=== PATIENT | female | born 1980 | race African-American/Black ===

== ENCOUNTER 2017-03-29 07:32 | Emergency (ER) | payer MEDICAID, OTHER ==
[~2017-03-29] VITALS: Ht 170.2 cm; Wt 63.5 kg
[2017-03-29 07:52] VITALS: BP 127/74
--- NOTE | 2017-03-29 08:08 | Emergency Room Report ---
History of Present Illness General Chief Complaint: Animal Bite Source: Patient Present Illness HPI Patient states that she notes some insect bites on her right arm and the back of her right shoulder. She states that she was at a friend's house he was breathing her he her for some time. She did sit on her bed. However while she was there her friend asked her if she was "itching." She also was at a [place] this last weekend. She did sleep over at her friend's house. She did not see any mosquitoes or spiders. The location is only on her right upper arm and back of her right shoulder. She states the lesions itch a condom. She has been applying hydrocortisone to them. She states she has felt a little nauseated. She denies fever or chills. She has no other complaints. Allergies: Coded Allergies: No Known Allergies (Unverified , 12/05/12) Patient History Past Medical History: none Past Surgical History: none Social History: Denies: alcohol use, drug use, smoking Last Menstrual Period: unk Now: No Reviewed Nursing Documentation: PMH: Agreed, PSxH: Agreed Nursing Documentation-PMH Past Medical History: No Stated History Review of Systems All Other Systems: negative except mentioned in HPI Physical Exam Vital Signs Date Time Temp Pulse Resp B/P Pulse Ox O2 Delivery O2 Flow Rate FiO2 03/29/17 07:33 97.9 87 20 124/70 99 Room Air Sp02 EP Interpretation: reviewed, normal General Appearance: no apparent distress, alert, GCS 15, non-toxic Head: normocephalic, atraumatic Eyes: bilateral eye PERRL, bilateral eye normal inspection ENT: hearing grossly normal, normal pharynx, no angioedema, normal voice Neck: full range of motion, supple/symm/no masses Respiratory: no respiratory distress, no retraction, no accessory muscle use, speaking full sentences Rectal: deferred Musculoskeletal: gait/station normal, normal range of motion Neurologic: alert, oriented x3, responsive, motor strength/tone normal, sensory intact, speech normal Psychiatric: judgement/insight normal, memory normal, mood/affect normal, no suicidal/homicidal ideation Skin: warm/dry, well hydrated, other - Large erythematous raised area on R. medial upper arm 14cm oval. Scattered dime sized lesions with center punctation on R. lateral and posterior shoulder. Medical Decision Making Diagnostic Impression: Primary Impression: Insect bites ER Course The patient has findings on physical exam consistent with insect bites. These could be mosquito versus spider bite. There is a large local allergic reaction to one of the bites on the right anterior upper arm. This does not appear to be a cellulitis and more of a local allergic reaction. The bites are itchy. There are no concerning findings on exam that would make for a venomous or serious insect bite. The patient is instructed to obtain [id number] Benadryl and apply topical hydrocortisone cream for relief. There is no evidence of anaphylaxis or serious allergic reaction. The patient's instructed to followup closely with her primary care physician. Last Vital Signs Date Time Temp Pulse Resp B/P Pulse Ox O2 Delivery O2 Flow Rate FiO2 03/29/17 07:52 98.1 84 19 127/74 99 Room Air Disposition: HOME, SELF-CARE Condition: Improved Referrals: [facility] (PCP) ZOLTAN ASBA D.O. Mar 29, 2017 08:08
[2017-03-29 08:19] VITALS: BP 127/74
[2017-03-29] MEDS ORDERED: VIBRAMYCIN100 MG ORAL (13:16)
== END 2017-03-29 08:20 | disposition home or self-care (01) ==
LOC: EMR 07:52
DX: S40.861A Insect bite (nonvenomous) of right upper arm, initial encounter (principal); W57.XXXA Bitten or stung by nonvenomous insect and other nonvenomous arthropods, initial encounter; Y92.89 Other specified places as the place of occurrence of the external cause
CPT/HCPCS: 99283

== ENCOUNTER → 2017-03-29 | Emergency (ER) | payer MEDICAID, OTHER ==
[~2017-03-29] VITALS: Ht 170.2 cm; Wt 63.5 kg
[~2017-03-29] MED LIST: BACTRIM-DS1 EA ORAL; BENADRYL25 M2 PO; BENADRYL25 MG ORAL; CEPHALEXIN500 MG ORAL; ELIMITE 5% CREA60 GM TOPIC; FLONASE1 SPRAYS; LORATADINE10 M2 PO; NITROFURANTOIN100 M2 ORAL; NKM; PENICILLIN V P500 MG ORAL; PERMETHRIN60 GM TOPIC; PHENERGAN6.25 MG/5 PO; PREDNISONE20 MG ORAL; VIBRAMYCIN100 MG ORAL
[2017-03-29 12:52] VITALS: BP 110/28
--- NOTE | 2017-03-29 22:08 | Emergency Room Report ---
History of Present Illness General Chief Complaint: Animal Bite Source: Patient Present Illness HPI The patient is a 36-year-old female presenting with right arm rash and pain. She was seen in this emergency department earlier this morning for the same complaints. She states that the pain and the redness of worsen. It is now a 9/ 10 dull ache and does not radiate from the right arm. Worse with touch. She denies other symptoms including fever or chills Allergies: Coded Allergies: No Known Allergies (Unverified , 12/05/12) Patient History Past Medical History: see triage record Pertinent Family History: none Last Menstrual Period: Unk Reviewed Nursing Documentation: PMH: Agreed, PSxH: Agreed Nursing Documentation-PMH Past Medical History: No Stated History Review of Systems All Other Systems: negative except mentioned in HPI Physical Exam Vital Signs Date Time Temp Pulse Resp B/P Pulse Ox O2 Delivery O2 Flow Rate FiO2 03/29/17 12:52 98.4 96 18 110/28 99 Room Air Sp02 EP Interpretation: reviewed, normal General Appearance: no apparent distress, alert, GCS 15, non-toxic Head: normocephalic, atraumatic ENT: hearing grossly normal, normal pharynx, no angioedema, normal voice Neck: full range of motion, supple/symm/no masses Musculoskeletal: back normal, gait/station normal, normal range of motion Neurologic: alert, oriented x3, responsive, motor strength/tone normal, sensory intact, speech normal Psychiatric: judgement/insight normal, memory normal, mood/affect normal, no suicidal/homicidal ideation Skin: rash - Diffuse erythema to the right anterior proximal arm with central small punctures. Lymphatic: no adenopathy Medical Decision Making PA Attestation Dr. Small is my supervising physician. Patient management was discussed with my supervising physician Diagnostic Impression: Primary Impression: Cellulitis Qualified Codes: L03.113 - Cellulitis of right upper limb ER Course The patient is a 36-year-old female presenting with a rash. Ddx considered include but not limited to insect bite, contact dermatitis, eczema, cellulitis Physical exam: Afebrile. Right proximal anterior arm: There is erythema, tenderness to palpation, and increased temperature to the skin. The patient will be treated for cellulitis ER precautions given Last Vital Signs Date Time Temp Pulse Resp B/P Pulse Ox O2 Delivery O2 Flow Rate FiO2 03/29/17 12:52 98.4 96 18 110/28 99 Room Air Status: improved Disposition: HOME, SELF-CARE Condition: Improved Scripts Doxycycline Hyclate* (VIBRAMYCIN*) 100 Mg Capsule 100 MG ORAL EVERY 12 HOURS, #14 CAP 0 Refills Prov: VERNA SMITH 03/29/17 Referrals: [facility]ERR[facility] (PCP) Patient Instructions: Cellulitis Additional Instructions: I discussed my findings with the patient. All questions and concerns have been answered. Treatment and medication compliance have been addressed. I advised the patient that they need to follow up with PMD in 3-5 days. Return to ED if symptoms worsen, new symptoms arise, or if needed for any reason. Patient verbalized understanding of discharge instructions. VERNA SMITH Mar 29, 2017 22:08
== END | disposition home or self-care (01) ==
LOC: EMR 13:17
DX: L03.113 Cellulitis of right upper limb (principal)
CPT/HCPCS: 99283

== ENCOUNTER 2017-05-25 19:02 | Emergency (ER) | payer OTHER ==
[~2017-05-25] VITALS: Ht 170.2 cm; Wt 63.5 kg
[2017-05-25 19:46] VITALS: BP 105/63
[2017-05-25 19:50] VITALS: BP_SYST 102; BP_SYST 107; BP_DIAS 62; BP_DIAS 67; BP_DIAS 72
[2017-05-25 20:15] VITALS: BP 107/62
[2017-05-25 20:26] LABS: APPEARANCE,URINE CLEAR; KETONES,URINE NEGATIVE (NEGATIVE); LEUKOCYTE ESTERASE ,URINE 1+ (NEGATIVE); NITRITE,URINE NEGATIVE (NEGATIVE); PH,URINE 5 (4.5-8.0); PROTEIN,URINE NEGATIVE (NEGATIVE); UROBILINOGEN,URINE 1 MG/DL (0.0-1.0)
[2017-05-25 20:35] LABS: BACTERIA,URINE FEW /HPF; SQUAMOUS EPITHELIAL CELL,UR MODERATE /LPF (NONE/OCC); WBC,URINE 0-2 /HPF (0 - 2)
--- NOTE | 2017-05-25 23:03 | Emergency Room Report ---
History of Present Illness General Chief Complaint: Headache Source: Patient Present Illness HPI Patient is a 36-year-old female who presented after increased headache. Patient reported having the patient reports having gradual onset of headache after recent illness. She reports having multiple episodes of vomiting as well as watery diarrhea . She states she had been having some blurring her vision. She denies any recent head trauma. She denies neck stiffness. Allergies: Coded Allergies: No Known Allergies (Unverified , 12/05/12) Patient History Past Medical History: see triage record Last Menstrual Period: unk Reviewed Nursing Documentation: PMH: Agreed, PSxH: Agreed Nursing Documentation-PMH Past Medical History: No Stated History Review of Systems All Other Systems: negative except mentioned in HPI Physical Exam Vital Signs Date Time Temp Pulse Resp B/P (MAP) Pulse Ox O2 Delivery O2 Flow Rate FiO2 05/25/17 19:33 98.1 90 16 110/65 96 Room Air General Appearance: well appearing, no apparent distress, alert, GCS 15 Head: normocephalic, atraumatic ENT: hearing grossly normal, normal voice Neck: full range of motion, supple Respiratory: no respiratory distress, speaking full sentences Musculoskeletal: no calf tenderness Neurologic: normal gait Psychiatric: mood/affect normal Skin: no rash Medical Decision Making Diagnostic Impression: Primary Impression: Gastroenteritis ER Course Patient presented for headache. Differential diagnoses included but was not limited to skull fracture, subarachnoid hemorrhage, meningitis, aneurysm, mass lesion, intracranial hemorrhage. The patient declined laboratory testing. As she also declined IV fluids the patient appears to be awake and alert and capable of self care. She was advised to remain off of work for 3 days. Patient is advised not to handle food until cleared by her physician. Last Vital Signs Date Time Temp Pulse Resp B/P (MAP) Pulse Ox O2 Delivery O2 Flow Rate FiO2 05/25/17 20:15 98.1 80 12 107/62 100 Room Air Status: improved Disposition: HOME, SELF-CARE Condition: Stable Departure Forms: Return to Work Return to Work in (Days): 4 Patient Instructions: Dehydration, Adult Additional Instructions: Return for increased dizziness, persistent vomitting or change in skin color Kd Cordon May 25, 2017 23:03
== END 2017-05-25 20:15 | disposition home or self-care (01) ==
LOC: EMR 19:44
DX: K52.9 Noninfective gastroenteritis and colitis, unspecified (principal); R51 Headache
CPT/HCPCS: 81003; 81025; 99283

== ENCOUNTER 2017-08-16 18:23 | Emergency (ER) | payer MEDICAID, OTHER ==
[~2017-08-16] VITALS: Ht 170.2 cm; Wt 59.0 kg
[2017-08-16 18:41] VITALS: BP 123/84
[2017-08-16] MEDS ORDERED: Dicyclomine HCl 10mg/5ml oral soln ORAL ONE (19:00)
[2017-08-16 19:29] LABS: APPEARANCE,URINE SLIGHTLY CLOUDY; KETONES,URINE NEGATIVE (NEGATIVE); LEUKOCYTE ESTERASE ,URINE 1+ (NEGATIVE); NITRITE,URINE NEGATIVE (NEGATIVE); PH,URINE 5 (4.5-8.0); PROTEIN,URINE 1+ (NEGATIVE); UROBILINOGEN,URINE 1 MG/DL (0.0-1.0)
--- NOTE | 2017-08-16 19:51 | Emergency Room Report ---
History of Present Illness General Chief Complaint: Abdominal Pain Source: Patient Present Illness HPI 37-year-old female presents to the emergency department complaining of 6/10 in severity lower abdominal cramping with bloating sensation since this a.m. Patient reports 3 episodes of vomiting and diarrhea yesterday after eating gumbo. Patient denies fevers or chills she denies and states that she is currently taking Depo-Provera. She denies blood in the vomit or stool she denies dark tarry stools. Patient denies abdominal tenderness. Dysuria, hematuria or frequency. Patient describes her symptoms as uncomfortable. She reports continued nausea. Denies head trauma, fall or imbalance. Denies CP, Palpitations, LOC, AMS, dizziness, Changes in Vision, Sensation, paresthesias, or a sudden severe headache. Allergies: Coded Allergies: No Known Allergies (Unverified , 12/05/12) Patient History Past Medical History: see triage record Past Surgical History: none Immunizations: UTD Reviewed Nursing Documentation: PMH: Agreed, PSxH: Agreed Nursing Documentation-PMH Past Medical History: No Stated History Review of Systems All Other Systems: negative except mentioned in HPI Physical Exam Vital Signs Date Time Temp Pulse Resp B/P (MAP) Pulse Ox O2 Delivery O2 Flow Rate FiO2 08/16/17 18:41 98.6 16 123/84 100 Room Air 08/16/17 18:41 75 Sp02 EP Interpretation: reviewed, normal General Appearance: no apparent distress, alert, GCS 15, non-toxic Head: normocephalic, atraumatic Eyes: bilateral eye normal inspection, bilateral eye PERRL ENT: hearing grossly normal, normal pharynx, no angioedema, normal voice Neck: full range of motion Respiratory: lungs clear, normal breath sounds, speaking full sentences Cardiovascular #1: regular rate, rhythm Gastrointestinal: normal bowel sounds, non tender, soft, no guarding, no rebound, other - Negative Bynum signs, Negative MacBurney's sign, Negative Rosvigns Sign, Negative Psoas, No Peritoneal signs. Rectal: deferred Genitourinary: normal inspection, no CVA tenderness Musculoskeletal: back normal, gait/station normal, normal range of motion, non- tender, no calf tenderness Neurologic: alert, oriented x3, responsive, motor strength/tone normal, sensory intact, normal gait, speech normal Skin: normal color, no rash, warm/dry, well hydrated Medical Decision Making PA Attestation Dr. alaniz is my supervising Physician whom patient management has been discussed with. Diagnostic Impression: Primary Impression: Nausea and vomiting Qualified Codes: R11.2 - Nausea with vomiting, unspecified ER Course 37-year-old female presents to the emergency department complaining of 6/10 in severity lower abdominal cramping with bloating sensation since this a.m. Patient reports 3 episodes of vomiting and diarrhea yesterday after eating gumbo. Patient denies fevers or chills she denies and states that she is currently taking Depo-Provera. She denies blood in the vomit or stool she denies dark tarry stools. Patient denies abdominal tenderness. Dysuria, hematuria or frequency. Patient describes her symptoms as uncomfortable. She reports continued nausea. Denies head trauma, fall or imbalance. Denies CP, Palpitations, LOC, AMS, dizziness, Changes in Vision, Sensation, paresthesias, or a sudden severe headache. Ddx considered but are not limited to GE, colitis, acute appy, SBO, Cyclical Vomiting secondary to THC, * Vital signs: pt. is afebrile, NAD, non-toxic in appearance. H&PE are most consistent with GE no evidence to suggest acute abdomen on physical exam. ORDERS: -None required at this time, the dx is clinical. -Urine Hcg:Negative -UA: unremarkable ED INTERVENTIONS: -Bentyl -mylanta -Zofran 4mg -Pt. able to tolerate oral fluids in ED. d/w pt. conservative treatment, and to follow up with a primary care provider. pt given a list of primary care clinics for follow up. d/w pt. to return to the ED with worsening or new symptoms. DISCHARGE: At this time pt. is stable for d/c to home. Will provide printed patient care instructions, and any necessary prescriptions. Care plan and follow up instructions have been discussed with the patient prior to discharge. Labs Test 08/16/17 19:00 Urine Color Yellow Urine Appearance Slightly cloudy Urine pH 5 (4.5-8.0) Urine Specific Otis 1.020 (1.005-1.035) Urine Protein 1+ (NEGATIVE) Urine Glucose (UA) Negative (NEGATIVE) Urine Ketones Negative (NEGATIVE) Urine Occult Blood 3+ (NEGATIVE) Urine Nitrite Negative (NEGATIVE) Urine Bilirubin Negative (NEGATIVE) Urine Urobilinogen 1 MG/DL (0.0-1.0) Urine Leukocyte Esterase 1+ (NEGATIVE) Urine RBC 5-10 /HPF (0 - 2) Urine WBC 0-2 /HPF (0 - 2) Urine Squamous Epithelial Cells Moderate /LPF (NONE/OCC) Urine Bacteria Few /HPF (NONE) Urine HCG, Qualitative Negative Last Vital Signs Date Time Temp Pulse Resp B/P (MAP) Pulse Ox O2 Delivery O2 Flow Rate FiO2 08/16/17 18:41 98.6 75 16 123/84 100 Room Air Disposition: HOME, SELF-CARE Condition: Stable Scripts Dicyclomine Hcl* (BENTYL*) 10 Mg Capsule 10 MG ORAL FOUR TIMES A DAY, #20 CAP Prov: Merle Alex 08/16/17 Ondansetron Odt* (ZOFRAN ODT*) 4 Mg Tab.rapdis 4 MG ORAL Q6H Y for Nausea & Vomiting, #20 TAB Prov: Merle Alex 08/16/17 Referrals: [facility] (PCP) Departure Forms: Return to Work Return to Work Date: Aug 17, 2017 Work Restrictions: None Other Restrictions: Please excuse 08/15/17 day of symptoms onset. Return to Full Activity: Aug 17, 2017 Patient Instructions: Nausea and Vomiting, Adult Additional Instructions: Take medications as directed. Follow up with a Primary Care Provider in 3-5 days, even if your symptoms have resolved. --Please review list of primary care clinics, if you do not already have a primary care provider Return sooner to ED if new symptoms occur, or current symptoms become worse. - Please note that this Emergency Department Report was dictated using Helprregulatory compliance manager technology software, occasionally this can lead to erroneous entry secondary to interpretation by the dictation equipment. Merle Alex Aug 16, 2017 19:51
[2017-08-16 19:54] LABS: WBC,URINE 0-2 /HPF (0 - 2)
[2017-08-16 19:55] LABS: BACTERIA,URINE FEW /HPF; SQUAMOUS EPITHELIAL CELL,UR MODERATE /LPF (NONE/OCC)
[2017-08-16] MEDS ORDERED: ZOFRAN ODT4 MG ORAL (19:59)
[2017-08-16] MEDS ORDERED: BENTYL10 MG ORAL (19:59)
[2017-08-16 20:05] VITALS: BP 123/84
[2017-08-16 20:12] VITALS: BP 123/84
== END 2017-08-16 20:12 | disposition home or self-care (01) ==
LOC: EMR 18:55
DX: R11.2 Nausea with vomiting, unspecified (principal); R10.30 Lower abdominal pain, unspecified; R14.0 Abdominal distension (gaseous); R19.7 Diarrhea, unspecified
CPT/HCPCS: 81003; 81025; 99284

== ENCOUNTER → 2018-01-11 | Emergency (ER) | payer MEDICAID ==
[~2018-01-11] VITALS: Ht 167.6 cm; Wt 63.5 kg
[~2018-01-11] MED LIST changes: +ANTI-ITCH28 G1 TP; +BENTYL10 MG ORAL; +ZOFRAN ODT4 MG ORAL
[2018-01-11 12:03] VITALS: BP 119/76
--- NOTE | 2018-01-11 12:27 | Emergency Room Report ---
History of Present Illness General Chief Complaint: Skin Rash/Abscess Source: Patient Present Illness HPI 37-year-old female patient presents ER complaining of bug bite on her left lower back. Patient reports that she woke up this morning and thought she was bit by a "spider", states she did not see a spider or any other bug. Denies fever, chest pain, shortness breath, vomiting. Reports that she applied some topical antibiotic for pain and itching symptoms, states that pain and itching has been relieved since that time. Allergies: Coded Allergies: No Known Allergies (Unverified , 12/05/12) Patient History Past Medical History: see triage record Last Menstrual Period: Depo shot Now: No Reviewed Nursing Documentation: PMH: Agreed; PSxH: Agreed Nursing Documentation-PMH Past Medical History: No Stated History Review of Systems All Other Systems: negative except mentioned in HPI Physical Exam Vital Signs Date Time Temp Pulse Resp B/P (MAP) Pulse Ox O2 Delivery O2 Flow Rate FiO2 01/11/18 11:38 98.3 67 19 119/76 96 Room Air 98.2 Sp02 EP Interpretation: reviewed, normal General Appearance: well appearing, no apparent distress, alert, GCS 15, non- toxic Head: normocephalic, atraumatic ENT: hearing grossly normal, normal pharynx, no angioedema, normal voice, uvula midline, moist mucus membranes Neck: full range of motion Respiratory: lungs clear, normal breath sounds, no rhonchi, no respiratory distress, no accessory muscle use, no wheezing, speaking full sentences Cardiovascular #1: regular rate, rhythm, no edema Musculoskeletal: back normal, digits/nails normal, gait/station normal, normal range of motion, non-tender Neurologic: alert, oriented x3, responsive, motor strength/tone normal, sensory intact Psychiatric: mood/affect normal Skin: other - left lower lumbar spine: 3-4cm circular area of edema, likely urticarial, mild elevation, erythema, no TTP, no central clearing, no satellite lesion, no pus, no bleeding, no drainage, no vesicles, no blisters Medical Decision Making PA Attestation Dr. Kern is my supervising Physician whom patient management has been discussed with. Diagnostic Impression: Primary Impression: Bug bite ER Course Pt. presents to the ED c/o bug bite. Ddx considered but are not limited to atopic dermatitis, bug bite, urticaria, allergic reaction. Vital signs: are WNL, pt. is afebrile ER COURSE: Patient declined Benadryl or other medications in ER at this time. Instructed to take Tylenol for pain symptoms Return to ER for new or worsening of symptoms including but not limited to fever , chest pain, shortness of breath, intractable vomiting, red streaking, worsening of lesion. Patient is afebrile, no difficulty breathing or vomiting, did not believe patient requires antibiotics or further ER treatment at this time. Follow-up with PCP for further management and treatment as needed. Patient instructed to apply warm compresses to affected area. DISCHARGE: -Rx given for Benadryl for pruritus. SE may cause drowsiness. -Rx given for hydrocortisone cream. At this time pt. is stable for d/c to home. Patient resting comfortably, in no acute distress, nontoxic appearing. Care plan and follow up instructions have been discussed with the patient prior to discharge. Patient provided with printed patient care instructions, and any necessary prescriptions. Patient instructed to follow-up with primary care provider in 3 - 5 days. Patient questions asked and answered. Patient reports understanding and agreement to treatment plan. ER precautions given. Patient instructed to return to ER immediately for any new or worsening of symptoms including but not limited to increasing SOB, persistent fever. - Please note that this Emergency Department Report was dictated using Built Oregonrecord center specialist technology software, occasionally this can lead to erroneous entry secondary to interpretation by the dictation equipment. Last Vital Signs Date Time Temp Pulse Resp B/P (MAP) Pulse Ox O2 Delivery O2 Flow Rate FiO2 01/11/18 12:03 98.2 67 19 119/76 96 Room Air 98.2 Disposition: HOME, SELF-CARE Condition: Stable Scripts Diphenhydramine Hcl* (BENADRYL*) 25 Mg Capsule 25 MG ORAL Q6H PRN for Itching, #30 CAP Prov: Enrique Burrell 01/11/18 Hydrocortisone 2% Cream (ANTI-ITCH 2% CREAM) Y Cr 28 GM TP BID for 7 Days, GM Prov: Enrique Burrell 01/11/18 Patient Instructions: Insect Bite, [id number] Additional Instructions: Followup with primary care provider in 3 -5 days for further diagnosis and treatment. Take medications as directed. Take Tylenol for pain symptoms. Patient questions asked and answered. ER precautions given, patient instructed to return to ER immediately for any new or worsening of symptoms including but not limited to fever, chest pain, shortness of breath, intractable vomiting, red streaking, worsening of lesion. Enrique Burrell January 11, 2018 12:27
[2018-01-11 12:32] VITALS: BP 119/76
== END | disposition home or self-care (01) ==
LOC: EMR 13:40
DX: S30.860A Insect bite (nonvenomous) of lower back and pelvis, initial encounter (principal); W57.XXXA Bitten or stung by nonvenomous insect and other nonvenomous arthropods, initial encounter; Y92.9 Unspecified place or not applicable; R60.0 Localized edema
CPT/HCPCS: 99284

== ENCOUNTER 2018-03-15 20:21 | Emergency (ER) | payer MEDICAID ==
[~2018-03-15] VITALS: Ht 170.2 cm; Wt 67.6 kg
[2018-03-15] MEDS ORDERED: PREDNISONE20 MG ORAL (21:07)
[2018-03-15] MEDS ORDERED: BENADRYL25 MG ORAL (21:07)
[2018-03-15 21:11] VITALS: BP 117/77
--- NOTE | 2018-03-17 01:13 | Emergency Room Report ---
History of Present Illness General Chief Complaint: Skin Rash/Abscess Source: Patient Present Illness HPI Patient present with complaints of redness and discomfort to the right ankle area Patient was recently hospitalized with possible cellulitis Patient reports that she was told by one physician that it appeared she had insect bites Patient was discharged home recently with antibiotics Presents now with complaint of new red area on the right ankle region Patient reports increased discomfort to that area Denies any fevers or chills denies any neck pain or photophobia Allergies: Coded Allergies: No Known Allergies (Unverified , 12/05/12) Patient History Past Medical History: see triage record Pertinent Family History: none Last Menstrual Period: UNK Reviewed Nursing Documentation: PMH: Agreed; PSxH: Agreed Nursing Documentation-PMH Past Medical History: No Stated History Review of Systems All Other Systems: negative except mentioned in HPI Physical Exam Vital Signs Date Time Temp Pulse Resp B/P (MAP) Pulse Ox O2 Delivery O2 Flow Rate FiO2 03/15/18 20:34 99.3 101 16 117/77 96 Room Air 99.3 Sp02 EP Interpretation: reviewed, normal General Appearance: well appearing, no apparent distress Head: normocephalic, atraumatic Eyes: bilateral eye PERRL, bilateral eye EOMI ENT: hearing grossly normal, normal pharynx Neck: full range of motion, supple Respiratory: lungs clear Cardiovascular #1: regular rate, rhythm, no edema Gastrointestinal: non tender, soft Musculoskeletal: normal inspection Neurologic: alert, oriented x3 Skin: other - Area of erythema involving the right ankle region, approximately 4 cm in length and it does appear to be circumferential around the ankle area, no fluctuance no flaring no dermatomal fashion spread no blister formation Lymphatic: no adenopathy Medical Decision Making Diagnostic Impression: Primary Impression: Rash and other nonspecific skin eruption ER Course Patient has a nonspecific dermatitis over the right ankle area Given the previous history that she had similar areas over the left thigh and the right leg Other differentials such as systemic pathology need to be entertained such as lupus and other autoimmune disease Patient was placed on steroids initially she will continue on her antibiotics and requires close follow-up Last Vital Signs Date Time Temp Pulse Resp B/P (MAP) Pulse Ox O2 Delivery O2 Flow Rate FiO2 03/15/18 21:11 99.3 16 117/77 96 Room Air 99.3 03/15/18 20:34 101 Status: improved Disposition: HOME, SELF-CARE Condition: Stable Scripts Diphenhydramine Hcl* (BENADRYL*) 25 Mg Capsule 25 MG ORAL Q6H PRN for Itching, #20 CAP Prov: Hayden Kern DO 03/15/18 Prednisone* (PREDNISONE*) 20 Mg Tablet 20 MG ORAL BID, #8 TAB Prov: Hayden Kern DO 03/15/18 Referrals: [facility],REFERRING (PCP) Patient Instructions: Rash Additional Instructions: Patient is provided with the discharge instructions notified to follow up with primary doctor in the next 2-3 days otherwise return to the er with any worsening symptoms. Please note that this report is being documented using [employer] technology. This can lead to erroneous entry secondary to incorrect interpretation by the dictating instrument. Hayden Kern DO Mar 17, 2018 01:13
== END 2018-03-15 21:11 | disposition home or self-care (01) ==
LOC: EMR 21:00
DX: R21 Rash and other nonspecific skin eruption (principal)
CPT/HCPCS: 99284; J7512

== ENCOUNTER 2019-03-23 12:29 | Emergency (ER) | payer MEDICAID ==
[~2019-03-23] VITALS: Ht 167.6 cm; Wt 65.8 kg
--- NOTE | 2019-03-23 12:31 | NUR ---
ED Nurse Note: pt not found in waiting area.
[2019-03-23 12:40] VITALS: BP 121/69
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
[2019-03-23] MEDS ORDERED: NAPROXEN500 M2 ORAL (14:24)
[2019-03-23] MEDS ORDERED: ROBAXIN500 MG PO (14:24)
[2019-03-23 14:33] VITALS: BP 121/69
--- NOTE | 2019-03-23 14:35 | NUR ---
ER DISCHARGE NOTE: Patient is cleared to be discharged per ERMD with family member, pt is aox4, on room air, with stable vital signs. pt was given dc and prescription instructions, pt was able to verbalize understanding, pt id band removed without complications. pt is able to ambulate with steady gait. pt took all belongings.
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
== END 2019-03-23 14:35 | disposition home or self-care (01) ==
LOC: EMR 14:25
DX: M25.562 Pain in left knee (principal); M25.561 Pain in right knee; S80.00XA Contusion of unspecified knee, initial encounter; S60.229A Contusion of unspecified hand, initial encounter; T14.90XA Injury, unspecified, initial encounter; V03.90XA Pedestrian on foot injured in collision with car, pick-up truck or van, unspecified whether traffic or nontraffic accident, initial encounter; Y92.410 Unspecified street and highway as the place of occurrence of the external cause
CPT/HCPCS: 99284

== ENCOUNTER 2019-09-03 01:53 | Emergency (ER) | payer MEDICAID ==
[~2019-09-03] VITALS: Ht 167.6 cm; Wt 61.2 kg
[~2019-09-03 01:53] MED LIST changes: +NAPROXEN500 M2 ORAL; +ROBAXIN500 MG PO
[2019-09-03] MEDS ORDERED: ACYCLOVIR200 MG ORAL (02:28)
[2019-09-03 03:00] VITALS: BP 121/89
[2019-09-03] MEDS ORDERED: Ketorolac 30mg Inj IV ONE (03:30)
[2019-09-03 03:39] LABS: BASOPHILS % (AUTO) 1.2 % (0.0-2.0); EOSINOPHILS % (AUTO) 4.1 % (0.0-3.0); HEMOGLOBIN 13.7 G/DL (12.0-16.0); LYMPHOCYTES % (AUTO) 31.2 % (20.0-45.0); MEAN CORPUSCULAR VOLUME 105 FL (80-99); MONOCYTES % (AUTO) 6.3 % (1.0-10.0); NEUTROPHILS % (AUTO) 57.1 % (45.0-75.0); PLATELET COUNT 343 K/UL (150-450); RED BLOOD COUNT 3.88 M/UL (4.20-5.40); RED CELL DISTRIBUTION WIDTH 11.6 % (11.6-14.8); WHITE BLOOD COUNT 14.4 K/UL (4.8-10.8)
[2019-09-03 03:41] LABS: BILIRUBIN, URINE NEGATIVE (NEGATIVE); COLOR,URINE PALE YELLOW; GLUCOSE, URINE (UA) NEGATIVE (NEGATIVE); KETONES,URINE NEGATIVE (NEGATIVE); LEUKOCYTE ESTERASE ,URINE 1+ (NEGATIVE); NITRITE,URINE NEGATIVE (NEGATIVE); PH,URINE 8 (4.5-8.0); PROTEIN,URINE NEGATIVE (NEGATIVE); UROBILINOGEN,URINE NORMAL MG/DL (0.0-1.0)
[2019-09-03 03:42] LABS: APPEARANCE,URINE CLEAR
[2019-09-03 03:48] LABS: ANION GAP 8 mmol/L (5-15); BLOOD UREA NITROGEN 11 mg/dL (7-18); CALCIUM 8.6 MG/DL (8.5-10.1); CARBON DIOXIDE 28 MMOL/L (21-32); CHLORIDE 105 MMOL/L (98-107); CREATININE 0.9 MG/DL (0.55-1.30); POTASSIUM 3.5 MMOL/L (3.5-5.1); SODIUM 141 MMOL/L (136-145)
[2019-09-03 03:53] LABS: ALANINE AMINOTRANSFERASE 19 U/L (12-78); ALBUMIN/GLOBULIN RATIO 1.2 (1.0-2.7); ALKALINE PHOSPHATASE 60 U/L (46-116); ASPARTATE AMINO TRANSFERASE 13 U/L (15-37); BILIRUBIN,TOTAL 0.2 MG/DL (0.2-1.0)
--- NOTE | 2019-09-03 05:14 | Diagnostic Imaging Report ---
Indication: Abdominal pain Technique: Spiral acquisitions obtained through the abdomen and pelvis. No oral contrast utilized, per emergency room physician request No IV contrast utilized, per emergency room physician request.. Multiplanar reconstructions were generated. Total dose length product 753 mGycm. CTDIvol(s) 13 mGy. Dose reduction achieved using automated exposure control Comparison: None Findings: There is suggestion of slight wall thickening of the descending colon and infiltration of the pericolonic fat. No evidence of colonic diverticulosis or diverticulitis. Normal appendix. No small bowel distention. There is trace free fluid within the pelvic cul-de-sac. No free intraperitoneal gas.. Distal esophagus, stomach, duodenum are unremarkable. The gallbladder is nondistended. The lack of IV contrast limits assessment of the solid organs. The liver, pancreas, spleen, adrenals, kidneys are all unremarkable. Venous varicosities are seen in the retroperitoneum inferior to the left renal lower pole. No pelvic mass or adenopathy. Retroverted uterus. Included lung bases are clear. The bones are unremarkable Impression: Thick-walled descending colon with pericolonic fat stranding, consistent with colitis, nonspecific as regards etiology Trace free pelvic fluid, could be related to the above or could be physiologic Unusual venous varicosities in the left inferior retroperitoneum. Significance uncertain This essentially agrees with the preliminary interpretation provided overnight by [facility] teleradiology service. The CT scanner at [facility] is accredited by the [employer] and the scans are performed using protocols designed to limit radiation exposure to as low as reasonably achievable to attain images of sufficient resolution adequate for diagnostic evaluation.
[2019-09-03] MEDS ORDERED: IBUPROFEN600 MG ORAL (05:37)
[2019-09-03] MEDS ORDERED: CIPROFLOXACIN500 M2 ORAL (05:37)
[2019-09-03] MEDS ORDERED: METRONIDAZOLE500 MG ORAL (05:37)
--- NOTE | 2019-09-03 05:37 | Emergency Room Report ---
History of Present Illness General Chief Complaint: Gastrointestinal Bleed Source: Patient Present Illness HPI Is a 39-year-old female with no past medical history. She presents with chief complaint of left-sided chest pain and abdominal pain. Onset for 1 to 2 days. Pain on her chest is sharp in nature. No rash. No shortness of breath. No fever chills. Pain is abdomen is diffuse in nature. She felt bloated. No fever chills but she says she has some rectal bleeding is bright red blood. Never had this problem before. No family history of inflammatory bowel disease. It is 7 out of 10. Allergies: Coded Allergies: No Known Allergies (Unverified , 12/05/12) Patient History Past Medical History: see triage record, old chart reviewed Past Surgical History: none Pertinent Family History: none Social History: Denies: smoking Now: No Immunizations: other Reviewed Nursing Documentation: PMH: Agreed; PSxH: Agreed Nursing Documentation-PMH Past Medical History: No History, Except For Review of Systems Eye: Denies: eye pain, blurred vision ENT: Denies: ear pain, nose congestion, throat swelling Respiratory: Denies: cough, shortness of breath Cardiovascular: Reports: chest pain; Denies: palpitations Gastrointestinal: Reports: abdominal pain; Denies: diarrhea, nausea, vomiting Musculoskeletal: Denies: back pain, joint pain Skin: Denies: rash Neurological: Denies: headache, numbness Endocrine: Denies: increased thirst, increased urine Hematologic/Lymphatic: Denies: easy bruising All Other Systems: negative except mentioned in HPI Physical Exam Vital Signs Date Time Temp Pulse Resp B/P (MAP) Pulse Ox O2 Delivery O2 Flow Rate FiO2 09/03/19 02:20 98.2 95 12 121/89 (100) 98 Room Air Vitals normal Sp02 EP Interpretation: reviewed, normal General Appearance: well appearing, no apparent distress, alert Head: normocephalic, atraumatic Eyes: bilateral eye PERRL, bilateral eye EOMI ENT: hearing grossly normal, normal pharynx Neck: full range of motion, supple, no meningismus Respiratory: chest non-tender, lungs clear, normal breath sounds Cardiovascular #1: regular rate, rhythm, no murmur Gastrointestinal: normal bowel sounds, no mass, no organomegaly, no bruit, non- distended, tenderness - Mild diffuse, other - No hemorrhoids. Heme-negative Musculoskeletal: back normal, normal range of motion, gait/station normal Psychiatric: mood/affect normal Medical Decision Making Diagnostic Impression: Primary Impression: Chest pain Qualified Codes: R07.9 - Chest pain, unspecified Additional Impression: Colitis ER Course This patient presents with atypical chest pain. No evidence of ACS, PE, dissection to name a few. Abdominal CT show colitis of the distal transverse and descending colon. This may be inflammatory infectious. We will put her on antibiotics. She may need a colonoscopy. She denies any family history of inflammatory bowel disease. But she does not know if any member has any. Rhythm Strip Diag. Results EP Interpretation: yes Rate: 77 Rhythm: NSR, no PVC's, no ectopy Chest X-Ray Diagnostic Results Chest X-Ray Diagnostic Results : Chest X-Ray Ordered: Yes # of Views/Limited/Complete: 1 View Indication: Chest Pain EP Interpretation: Yes Interpretation: no consolidation, no effusion, no pneumothorax, no acute cardiopulmonary disease Impression: No acute disease Electronically Signed by: Juan Pablo Reynolds MD CT/MRI/US Diagnostic Results CT/MRI/US Diagnostic Results : Imaging Test Ordered: CT abdomen pelvis Impression Read by radiologist. Thickening of the distal transverse and descending colon. Last Vital Signs Date Time Temp Pulse Resp B/P (MAP) Pulse Ox O2 Delivery O2 Flow Rate FiO2 09/03/19 04:13 98.2 09/03/19 03:00 95 12 121/89 98 Room Air Status: improved Disposition: HOME, SELF-CARE Condition: Stable Scripts Ibuprofen* (MOTRIN*) 600 Mg Tablet 600 MG ORAL THREE TIMES A DAY, #30 TAB 0 Refills Prov: Juan Pablo Reynolds MD 09/03/19 Metronidazole* (FLAGYL*) 500 Mg Tablet 500 MG ORAL BID, #14 TAB Prov: Juan Pablo Reynolds MD 09/03/19 Ciprofloxacin Hcl* (CIPROFLOXACIN HCL*) 500 Mg Tablet 500 MG ORAL Q12H, #14 TAB 0 Refills Prov: Juan Pablo Reynolds MD 09/03/19 Referrals: [facility],REFERRING (PCP) Additional Instructions: Follow-up with your doctor in 7 days. You may need a referral to see a GI doctor for colonoscopy if symptoms do not improve. This is a check for inflammatory bowel disease like Crohn's disease or ulcerative colitis. Return if symptoms worsen. Juan Pablo Reynolds MD Sep 03, 2019 05:37
[2019-09-03 05:45] VITALS: BP 105/76
--- NOTE | 2019-09-03 11:25 | Diagnostic Imaging Report ---
Indication: Shortness of breath Technique: One view of the chest Comparison: 08/04/2009 Findings: Lungs and pleural spaces are clear. Heart size is normal. Impression: No acute process
== END 2019-09-03 05:45 | disposition home or self-care (01) ==
LOC: EMR 03:17
DX: R07.9 Chest pain, unspecified (principal); K52.9 Noninfective gastroenteritis and colitis, unspecified
CPT/HCPCS: 36415; 71045; 74176; 80053; 80307; 81003; 81025; 83690; 85025; 96361; 96374; J1885; J7030; Z7502; 99284